=== PATIENT | female | born 1960 | race Caucasian/White ===

== ENCOUNTER → 2017-09-14 12:02 | Outpatient (CLI) | payer MEDICAID, SELFPAY ==
--- NOTE | 2017-09-14 12:09 | XR_ITS ---
XR chest 2V HISTORY: Anasarca ITS.REASON: EDEMA ORDERING PHYSICIAN: Araceli Salazar PATIENT AGE: 57 years COMPARISON: 05/09/2010 FINDINGS: The cardiomediastinal silhouette and pulmonary vascularity are within normal limits. The lungs are clear without infiltrates, suspicious nodules, or pleural effusions. No acute bony abnormalities. IMPRESSION: Negative chest, no acute finding
--- NOTE | 2017-09-14 13:29 | CA_ITS ---
PROCEDURE: 2-D M-mode and color Doppler study INDICATIONS FOR THE TEST: Chest pain COPD Heart Murmur Tobacco Smoking Palpitations Fatigue Syncope EdemaX HypertensionXDiabetes Mellitus Rheumatic Fever SOBXDOEXObesityXHyperlipidemia Family History HDX Additional History PATIENT INFORMATION HEIGHT: 66 WEIGHT:170 GENDER: Female B/P:112/70 2-D/M-MODE INTERPRETATION: 2-D MEASUREMENTS OBSERVED VALUES IN CMS Right Ventricular Dimension (RVDd) 1.0 Interventricular Septum (Thickness)(IVsd) 1.2 Left Ventricular Internal Dimensions(LVIDd) 5.0 Left Ventricular Posterior Wall (Thickness)(LVPWd) 1.0 Aortic Root 3.1 Aortic Cusp Separation 2.0 Left Atrial Dimensions (LAD) 2.8 2D 1. Left atrium is mildly enlarged, left ventricle is normal size, there is mild concentric left ventricular hypertrophy, visually estimated ejection fraction 55% with no obvious regional wall motion abnormality. 2. The right atrium and right ventricle are normal size and contractility. 3. The aortic valve is minimally thickened and fibrosed. 4. The mitral and tricuspid valve leaflets are minimally thickened. 5. The pulmonic valve is poorly visualized. 6. No significant pericardial effusion noted. DOPPLER INTERROGATION: Doppler interrogation of the aortic, mitral and tricuspid valvular presence of mild mitral and tricuspid regurgitation, tricuspid and jet velocity is insufficient for calculation of the right ventricular systolic pressure, grade 1 diastolic dysfunction seen with tissue Doppler evidence of raised left atrial pressure. CONCLUSION: 1. Mildly enlarged left atrium, normal left ventricular size, mild concentric left ventricular hypertrophy, visually estimated ejection fraction 55% with no obvious regional wall motion abnormality, grade 1 diastolic dysfunction seen with tissue Doppler evidence of raised left atrial pressure. 2. Mild mitral and tricuspid regurgitation 3. No significant pericardial effusion noted.
[2017-09-14 14:16] VITALS: PULSE 70; PULSE 74
== END ==
PROVIDERS: Family Provider Nurse Practitioner; PCP Family Medicine; Visit Provider Nurse Practitioner
DX: R60.9 Edema, unspecified (principal)
CPT/HCPCS: 71046; 93306; 94060; 94640

== ENCOUNTER → 2019-01-12 15:52 | Outpatient (CLI) | payer MEDICAID, SELFPAY ==
--- NOTE | 2019-01-12 16:00 | XR_ITS ---
XR foot RT min 3V HISTORY: ITS.REASON: RT FOOT PAIN ORDERING PHYSICIAN: Stacey Suazo APRN PATIENT AGE: 58 years COMPARISON: None FINDINGS: There is mild to moderate generalized osteopenia without acute fracture. There is also generalized mild narrowing of all of the interphalangeal joints. There is no spurring or periarticular erosions. Soft tissues are unremarkable. There is a 2 mm calcaneal spur. There is punctate linear calcification adjacent to the undersurface of the cuboid bone, likely related to calcification of tendon or ligament. Impression: Osteopenia. No acute process. Small calcaneal spur.
--- NOTE | 2019-01-12 16:00 | XR_ITS ---
XR foot LT min 3V HISTORY: ITS.REASON: LT FOOT PAIN ORDERING PHYSICIAN: Stacey Suazo APRN PATIENT AGE: 58 years COMPARISON: None FINDINGS: There is generalized mild to moderate osteopenia without acute fracture. As on the right foot there is nonspecific mild narrowing of all of the interphalangeal joints without spurring or periarticular erosion. The remainder of the joint spaces and alignment are normal. There is no soft tissue abnormality. Impression: No acute process. Osteopenia. Nonspecific mild arthritic change involving interphalangeal joints.
== END ==
PROVIDERS: PCP Nurse Practitioner Family; Visit Provider Nurse Practitioner Family
DX: M79.671 Pain in right foot (principal); M79.672 Pain in left foot
CPT/HCPCS: 73630

== ENCOUNTER → 2019-03-13 10:01 | Outpatient (CLI) | payer MEDICAID, SELFPAY ==
--- NOTE | 2019-03-13 10:07 | XR_ITS ---
PROCEDURE: XR DEXA AXIAL SKELETON CLINICAL HISTORY: OSTEOPENIA COMPARISON: No exams were available for comparison FINDINGS: L1-L4 density is 0.850 grams/centimeter sq with a T-score -2.7. Right femoral neck density is 0.635 grams/centimeters sq with T-score -2.9. Total right hip density is 0.622 grams/centimeters sq with T-score -3.1. IMPRESSION: Osteoporosis with high fracture risk. Treatment advised. Suggest follow-up exam February 2020 Dictated by: Lakhwinder Pizarro MD 03/13/2019 12:05 Signed by: <Electronically signed by Lakhwinder Pizarro MD in [place]> 03/13/2019 12:05
== END ==
PROVIDERS: PCP Family Medicine; Visit Provider Nurse Practitioner Family
DX: M81.0 Age-related osteoporosis without current pathological fracture (principal)
CPT/HCPCS: 77080

== ENCOUNTER → 2019-04-03 09:08 | Outpatient (CLI) | payer MEDICAID, SELFPAY ==
--- NOTE | 2019-04-03 09:11 | US_ITS ---
PROCEDURE: US LIVER CLINICAL INDICATION: ELEVATED ALKALINE Elevated liver enzymes COMPARISON: No exams were available for comparison FINDINGS: There has been a prior cholecystectomy. The liver has an unremarkable appearance. No focal liver lesions, biliary dilatation, or abnormal fluid collections. There is appropriate direction of blood flow within a non dilated portal vein. Common bile duct is normal at 4 mm. The right kidney and pancreas have an unremarkable appearance IMPRESSION: Prior cholecystectomy. Unremarkable hepatic ultrasound. Dictated by: Lakhwinder Pizarro MD 04/03/2019 11:13 Electronically signed by Lakhwinder Pizarro MD in [place] 04/03/2019 11:13
--- NOTE | 2019-04-03 09:39 | MR_ITS ---
PROCEDURE: MR HEAD/BRAIN WO/W CON CLINICAL INDICATION: FACIAL NUMBNESS, CHANGES IN VISION COMPARISON: No exams were available for comparison TECHNIQUE: Routine multiplanar multi echo sequences are performed without and with gadolinium enhancement. FINDINGS: No midline shift, mass effect, intracranial hemorrhage, or hydrocephalus is evident. No evidence of acute infarction. The cerebellopontine angles, cerebellum, and brainstem are unremarkable. There is slight increased T2 signal within the central aspect of the tina. This does not demonstrate restricted diffusion and is not show any enhancement and may represent ischemic gliotic change from microvascular disease. No enhancing lesions are evident. There are a few scattered subcortical and periventricular areas of increased T2 white matter signal intensity which are nonspecific. The pituitary, optic chiasm, corpus callosum, and craniocervical junction have an unremarkable appearance. No mastoid effusion or sinus air-fluid level. IMPRESSION: Scattered periventricular and subcortical T2 white matter hyperintensities as well as mild diffuse increased T2 signal in the tina. These findings may be due to skin kevin gliotic change from microvascular disease. Differential diagnosis would include migraine headache or even demyelinating process. Please correlate with clinical parameters. No evidence of acute infarction enhancing mass or other significant anomaly. Dictated by: Lakhwinder Pizarro MD 04/04/2019 07:13 Electronically signed by Lakhwinder Pizarro MD in [place] 04/04/2019 07:13
== END ==
PROVIDERS: PCP Nurse Practitioner Family; Visit Provider Nurse Practitioner Family
DX: R74.8 Abnormal levels of other serum enzymes (principal); R20.0 Anesthesia of skin; H53.9 Unspecified visual disturbance
CPT/HCPCS: 70553; 76705; A9576

== ENCOUNTER 2020-09-21 16:57 | Emergency (ER) | payer OTHER, SELFPAY ==
[2020-09-21 17:05] VITALS: BP 137/76; PULSE 80; RESP 18; TEMP 36.8; O2SAT 94; BMI 25.8
--- NOTE | 2020-09-21 17:55 | HMH.EDUTC ---
[facility] [place] Clinical Impression: Bronchitis Sinusitis Qualifiers: Sinusitis location: unspecified location Chronicity: unspecified Qualified Code(s): J32.9 - Chronic sinusitis, unspecified Disposition: Home, Self-Care Condition on Discharge: Good Instructions: Sinusitis, Sinus Headache, Acute Bronchitis, DI for Sinusitis, DI for Acute Bronchitis, Methylprednisolone, Azithromycin Additional Instructions: ? Start antibiotic today. Be sure to complete entire prescription even if feeling better ? Monitor temp. Tylenol every 4 hours as needed and / or ibuprofen every 6 hours as needed ( As long as your primary care physician has told you that it ok to take both. For fever/aches/pains ER if no less than 101 despite Tylenol or Motrin ? Humidifier/vaporizer or hot steamy shower ? Inhaler every 4-6 hours as needed like we discussed. If unsure how to use it, ask pharmacist to demonstrate how. Should help open airways and improve cough, wheezing, and shortness of breath ? Mucinex during the day for your cough and cough suppressant only at night. Be sure to drink lots of water. These are available over the counter *Tessalon Perles will not cause drowsiness but use at bedtime to help stop cough so that you may get some rest. *Start steroid today. Helps with inflammation therefore, cough and wheezing. Follow directions on the package. Reviewed side effects. Patient reports taking them before. Follow up IMMEDIATELY for new or worsening of symptoms OR no noticeable improvement over the next 48-72 hours. 911 immediately for any life threatening symptoms such as chest pain or difficulty breathing Prescriptions: methylPREDNISolone [Medrol 4mg tab] 4 mg PO DIRECTED #21 tab Transmission Status: Received by [facility] Benzonatate [Tessalon Perle 100mg Cap*] 100 mg PO TID PRN #30 cap PRN Reason: Cough Transmission Status: Received by [facility] Azithromycin [Z-Poncho 250mg Tab] 250 mg PO DIRECTED #6 tab Transmission Status: Received by [facility] Referrals: Stacey Suazo APRN [Primary Care Provider] - As needed Forms: Work/School Release Time of Disposition: 18:05 Medical Decision Making - Zaheer Inquiry Pt receiving controlled substance: No Zaheer was queried for this patient: No Vital Signs: 09/21/20 17:05 09/21/20 18:10 Temperature 98.2 F 98.2 F Temperature Source Oral Pulse Rate 80 Pulse Rate [Right Brachial] 80 Respiratory Rate 18 18 Blood Pressure 137/76 Blood Pressure [Right Arm] 137/76 Blood Pressure Mean [Right Arm] 96 Blood Pressure Source [Right Arm] Automatic Cuff Blood Pressure Position [Right Arm] Sitting 02 Sat by Pulse Oximetry 94 L Oxygen Delivery Method Room Air Medical Decision Narrative: Patient states that she has taken azithromycin and steriods before without reaction or complications [facility] [place] - General Stated complaint: cough,runny nose Time Seen by Provider: 09/21/20 17:55 Mode of Arrival: Ambulatory Source of Information: Patient Limitations: No Limitations Description of Symptoms (Recalled from Triage Doc. by RN): PATIENT C/O HACKING COUGH, RUNNY NOSE, AND SINUS DRAINAGE X 3 DAYS HEENT Symptoms (Recalled from RN notes): Yes Resp Symptoms (Recalled from RN notes): Yes Skin Symptoms (Recalled from RN notes): No MS Symptoms (Recalled from RN notes): No Functional Status (Recalled from RN notes): WNL - History of Present Illness Provider Complaint: Patient states that she has been having sinus pressure for over a week and for the last couple of days she has been having sinus pressure and drainage along with cough and feels like it is trying to move into her chest area States that every year she gets sinusitis and bronchitis and feels like that is what she is doing now - Related Data Home Medications Medication Instructions Recorded Confirmed Diclofenac Sodium [Diclofenac 75mg 75 mg PO BID 07/17/19 07/17/19 Tab] Fluoxetine HCl [Prozac]
[2020-09-21 18:10] VITALS: BP 137/76; PULSE 80; RESP 18; TEMP 36.8; O2SAT 94
== END 2020-09-21 18:15 | disposition home or self-care (01) ==
PROVIDERS: Emergency Provider Nurse Practitioner; PCP Nurse Practitioner Family
DX: J20.9 Acute bronchitis, unspecified (principal); J32.9 Chronic sinusitis, unspecified; I10 Essential (primary) hypertension
CPT/HCPCS: 99202; G0463

== ENCOUNTER 2020-11-22 15:30 | Emergency (ER) | payer OTHER, SELFPAY ==
[2020-11-22 16:00] VITALS: BP 131/86; PULSE 64; RESP 17; TEMP 36.9; O2SAT 97; BMI 26.1
--- NOTE | 2020-11-22 16:28 | HMH.EDUTC ---
[facility] [place] Disposition Clinical Impression: Strep pharyngitis Disposition: Home, Self-Care Condition on Discharge: Good Instructions: DI for Strep Throat Prescriptions: Amoxicillin [Amoxicillin 875MG Tab] 875 mg PO Q12H #20 tab Transmission Status: Pending to [facility] Referrals: Stacey Suazo APRN [Primary Care Provider] - Time of Disposition: 16:55 Medical Decision Making - Zaheer Inquiry Pt receiving controlled substance: No Vital Signs: 11/22/20 16:00 Temperature 98.4 F Temperature Source Oral Pulse Rate [Right Brachial] 64 Respiratory Rate 17 Blood Pressure [Right Arm] 131/86 Blood Pressure Mean [Right Arm] 101 Blood Pressure Source [Right Arm] Automatic Cuff Blood Pressure Position [Right Arm] Sitting 02 Sat by Pulse Oximetry 97 Oxygen Delivery Method Room Air - Lab Data Lab results reviewed: Yes: I reviewed the patient's lab results. Lab Results 11/22/20 16:07: Influenza Type A Ag Negative, Influenza Type B Ag Negative Orders (Tests/Meds): ORDERS Category Date Time Status Covid-19 Nasal PCR ([facility]) Routine Lab 11/22/20 16:15 Received [facility] [place] HPI - General Stated complaint: sick at stomach, body aches Time Seen by Provider: 11/22/20 16:28 Mode of Arrival: Ambulatory Source of Information: Patient Limitations: No Limitations Description of Symptoms (Recalled from Triage Doc. by RN): PATIENT C/O NAUSEA, WEAKNESS, AND BODY ACHES SINCE THIS MORNING HEENT Symptoms (Recalled from RN notes): No Resp Symptoms (Recalled from RN notes): No Skin Symptoms (Recalled from RN notes): No MS Symptoms (Recalled from RN notes): No Functional Status (Recalled from RN notes): WNL - History of Present Illness Provider Complaint: Patient was treated for bronchitis last week. She completed EES and Prednisone. Today she is achy, tired, and nauseous. No fever. Denies ear pain or sore throat. No vomiting or diarrhea. Onset (ago): day(s) (1) Location: abdomen Relieving factors: none Exacerbating factors: none Associated symptoms: denies other symptoms Treatments prior to arrival: none - Related Data Home Medications Medication Instructions Recorded Confirmed Fluoxetine HCl [Prozac] 40 mg PO DAILY 07/17/19 11/22/20 Gabapentin 600 mg PO TID 07/17/19 11/22/20 estradioL [Estradiol] 1 tab PO DAILY 07/17/19 11/22/20 hydroCHLOROthiazide [HCTZ 12.5mg 12.5 mg PO DAILY 11/22/20 11/22/20 cap] Previous Rx's Medication Instructions Recorded Amoxicillin [Amoxicillin 875MG 875 mg PO Q12H #20 tab 11/22/20 Tab] Allergies Allergy/AdvReac Type Severity Reaction Status Date / Time thiopental Allergy Severe STOP Verified 09/21/20 17:28 BREATHING morphine Allergy Unknown NA-NAUSEA/V Verified 09/21/20 17:28 OMITING - Worker's Comp Is this a Worker's Comp case?: No [facility] History - Hepatitis A Screen Drug use history?: No High risk sexual behaviors?: No History of sexually transmitted infection?: No Currently employed?: No Childcare worker?: No Do you have indoor plumbing?: Yes Do you have electricity?: Yes Attestation statement:: This patient has been screened for Hepatitis A risk factors. I have reviewed the patient's past medical history: Yes Medical History: Reports:: Hypertension Laterality Cases: Right: Arthroscopy Knee, Bilateral: Carpal Tunnel Release, Tonsillectomy Other Surgeries: Yes: Cholecystectomy, , Tubal Ligation - Social History Smoking Status: Never smoker Alcohol Intake: never Occupational Status: other Family Hx:: Coronary Artery Disease ROS Obtained: Yes All systems reviewed & no additional complaints - Constitutional Constitutional: Reports body ache, Reports fatigue, Denies fever(s), Reports malaise - Gastrointestinal Gastrointestingal: Reports: nausea Physical Exam - General General appearance: alert, in no apparent distress - Head Head exam: normocephalic - Eye Eye exam: Present: PERRL - ENT ENT
[2020-11-22 16:29] LABS: UTC Influenza A Antigen Negative (Negative); UTC Influenza B Antigen Negative (Negative)
[2020-11-22 17:00] VITALS: BP 131/86; PULSE 64; RESP 17; TEMP 36.9; O2SAT 97
[2020-11-22 17:02] LABS: UTC Strep Screen (Rapid) Positive (Negative)
== END 2020-11-22 17:02 | disposition home or self-care (01) ==
PROVIDERS: Emergency Provider Physician Assistant; PCP Nurse Practitioner Family
DX: J02.0 Streptococcal pharyngitis (principal); I10 Essential (primary) hypertension
CPT/HCPCS: 87804; 87880; 99202; G0463; U0003

== ENCOUNTER → 2020-11-28 14:25 | Outpatient (CLI) | payer OTHER, SELFPAY ==
--- NOTE | 2020-11-28 14:28 | XR_ITS ---
PROCEDURE: XR CHEST 2V CLINICAL HISTORY: SOB COMPARISON: DX CXR2V XR chest 2V from 09/14/2017 FINDINGS: The cardiomediastinal silhouette and pulmonary vascularity are within normal limits. The lungs are clear without infiltrates, suspicious nodules, or pleural effusions. Minor degenerative changes of the thoracic spine. IMPRESSION: No acute findings. Dictated by: Tracie Yen 11/28/2020 15:13 Tracie Yen in [place] 11/28/2020 15:13
== END ==
PROVIDERS: PCP Nurse Practitioner Family; Visit Provider Nurse Practitioner Family
DX: R06.02 Shortness of breath (principal)
CPT/HCPCS: 71046

== ENCOUNTER → 2021-08-15 11:50 | Outpatient (CLI) | payer OTHER, SELFPAY ==
[2021-08-16 15:34] LABS: Covid-19 Nasal PCR Sendout Lex POSITIVE
== END ==
PROVIDERS: Visit Provider Nurse Practitioner
DX: U07.1 COVID-19 (principal)
CPT/HCPCS: C9803; U0004; U0005

== ENCOUNTER → 2021-11-11 13:42 | Outpatient (CLI) | payer OTHER, SELFPAY ==
--- NOTE | 2021-11-11 13:49 | MM_ITS ---
PROCEDURE INFORMATION: Exam: Bilateral Diagnostic Breast Tomosynthesis Exam date and time: 11/11/2021 1:53 PM Age: 61 years old Clinical indication: Concern for right breast lump. No family history of breast cancer. This is her 1st mammogram. TECHNIQUE: Imaging protocol: Bilateral Diagnostic tomosynthesis and 2D mammography including computer-aided detection (CAD) when performed. Unilateral or bilateral exam. Triangular marker placed at area of palpable concern in the right upper outer quadrant. Spot compression and in the right MLO view. COMPARISON: No relevant prior studies available. FINDINGS: MAMMOGRAPHY: Breast composition: There are scattered areas of fibroglandular density. Mass: None. Architectural distortion: None. Calcifications: No suspicious calcifications. Asymmetric density: None. Skin thickening: None. Axillary adenopathy: None. Minimal artifact from powder or deodorant high in the right axilla. Other: No focal findings related to area of palpable concern in the right upper outer quadrant, middle to posterior 3rd. IMPRESSION: No mammographic findings at the area of palpable concern on the right. Patient to be recalled for right breast ultrasound for further evaluation of the palpable concern. Further evaluation of a palpable abnormality should be based on clinical grounds regardless of radiographic findings or lack thereof. No mammographic evidence of malignancy. ASSESSMENT: BI-RADS Category 0: Incomplete- Need Additional Imaging Evaluation and/or Prior Mammograms for Comparison
--- NOTE | 2021-11-11 13:51 | XR_ITS ---
FINAL REPORT CLINICAL HISTORY: LUMBAGO W/SCIATICA FINDINGS: Five views were obtained. There is no acute fracture. There is no malalignment. The disc spaces are maintained. IMPRESSION: No acute process. Reviewed, Interpreted and Dictated by Jerod Hampton MD Transcribed by Pablito Khan Authenticated by Jerod Hampton MD on 11/11/2021 03:16:23 PM [facility]
--- NOTE | 2021-11-11 13:51 | XR_ITS ---
FINAL REPORT CLINICAL HISTORY: RT HIP PAIN FINDINGS: 2 views of the right hip with an AP pelvis were obtained. There is no acute fracture or dislocation. There is minimal osteophyte formation along the inferior right femoral head. The joint spaces are intact. There are no soft tissue abnormalities. IMPRESSION: No acute process. Reviewed, Interpreted and Dictated by Jerod Hampton MD Transcribed by Pablito Khan Authenticated by Jerod Hampton MD on 11/11/2021 03:16:[address] [facility]
== END ==
PROVIDERS: PCP Nurse Practitioner Family; Visit Provider Nurse Practitioner Family
DX: N63.13 Unspecified lump in the right breast, lower outer quadrant (principal); M54.40 Lumbago with sciatica, unspecified side; M25.551 Pain in right hip
CPT/HCPCS: 72110; 73502; 77062; 77066; G0279

== ENCOUNTER → 2021-11-21 09:12 | Outpatient (CLI) | payer OTHER, SELFPAY ==
--- NOTE | 2021-11-21 09:19 | XR_ITS ---
FINAL REPORT TECHNIQUE: Bone densitometry calculations of the lumbar spine and left hip were obtained. CLINICAL HISTORY: . post menopausal screening COMPARISON: March 13, 2019 FINDINGS: DEXA BONE DENSITY AXIAL SKELETON Using L1-4, the bone mineral density of the spine is 0.756 g/cm2, corresponding to T-score of -2.6. Was previously 0.850 g/cm2 with a T-score of -2.7. Using the left hip, the bone mineral density of the femoral neck is 0.632 g/cm2, corresponding to a T-score of -2.5. Was previously 0.726 g/cm2 with a T-score of -2.2. Using the right hip, the bone mineral density of the femoral neck is 0.566 g/cm2, corresponding to a T-score of -2.6. Was previously 0.622 g/cm2 with a T-score -3.1 NOTE: T-score: Standard deviation compared with peak bone mass of young adult mean. *Following the recommendations of the International Society of Bone Densitometry, classification of hip BMD is based on the lower of two T-scores; total hip or femoral neck. IMPRESSION: Osteoporosis: Lowest T-score is at or below -2.5. This patient's T-score meets the World Health Organization criteria for osteoporosis. Reviewed, Interpreted and Dictated by Jerod Hampton MD Transcribed by Iman Borges Authenticated by Jerod Hampton MD on 11/21/2021 10:42:28 AM [facility]
--- NOTE | 2021-11-21 09:23 | US_ITS ---
PROCEDURE INFORMATION: Exam: US Right Breast, Complete Exam date and time: 11/21/2021 10:19 AM Age: 61 years old Clinical indication: Right breast pain. Palpable abnormality in the right breast TECHNIQUE: Imaging protocol: Complete ultrasound of all four quadrants of the Right breast and the retroareolar regions, including ultrasound of the axilla when performed. COMPARISON: MG MM DIG MAMM BI DX W/CAD 11/11/2021 1:53 PM FINDINGS: Breast: Sonographic images of the right breast including the retroareolar region, all 4 quadrants and the axilla do not demonstrate any solid masses. Minimal subcentimeter cystic del valle is noted in the 2 o'clock axis as well as in the 9 o'clock axis 8 cm from the nipple where the patient reports a palpable abnormality. No architectural distortion or acoustical shadowing. No skin thickening or axillary adenopathy. Mammogram performed 11/11/2021 did not demonstrate any suspicious findings in the right lateral breast where the patient reports a palpable abnormality. IMPRESSION: Palpable abnormality in the right breast corresponds both mammographically and sonographically to normal fibroglandular structures and minimal subcentimeter cystic change. There is no mammographic evidence of malignancy. Further evaluation of a palpable abnormality should be based on clinical grounds regardless of radiographic findings or lack thereof. Annual mammographic screening is recommended unless otherwise clinically indicated. ASSESSMENT: BI-RADS Category 2: Benign
== END ==
PROVIDERS: PCP Nurse Practitioner Family; Visit Provider Nurse Practitioner Family
DX: M81.0 Age-related osteoporosis without current pathological fracture (principal); R92.8 Other abnormal and inconclusive findings on diagnostic imaging of breast; N64.4 Mastodynia; N63.10 Unspecified lump in the right breast, unspecified quadrant
CPT/HCPCS: 76641; 77080

== ENCOUNTER 2022-02-03 11:09 | Outpatient (CLI) | payer OTHER, SELFPAY ==
[2022-02-03 11:35] VITALS: BP 148/81; PULSE 64; RESP 18; TEMP 36.4; O2SAT 98
== END 2022-02-03 12:06 | disposition home or self-care (01) ==
LOC: INF 11:10
PROVIDERS: PCP Nurse Practitioner Family; Visit Provider Nurse Practitioner Family
DX: M81.0 Age-related osteoporosis without current pathological fracture (principal)
CPT/HCPCS: 96372; J0897

== ENCOUNTER → 2022-07-28 14:50 | Outpatient (CLI) | payer OTHER, SELFPAY ==
--- NOTE | 2022-07-28 14:54 | XR_ITS ---
FINAL REPORT CLINICAL HISTORY: COUGH,SOB COMPARISON: November 28, 2020 FINDINGS: Two views of the chest were obtained. The heart size and pulmonary vascularity are within normal limits. The mediastinum is normal. No acute pulmonary abnormality is identified. There is no pneumothorax. The bony thorax is intact. IMPRESSION: No active cardiopulmonary disease. Reviewed, Interpreted and Dictated by Johnie Lockett III, MD Transcribed by Iman Borges Authenticated and [facility]
== END ==
PROVIDERS: PCP Nurse Practitioner Family; Visit Provider Nurse Practitioner Family
DX: R06.02 Shortness of breath (principal); R05.1 Acute cough
CPT/HCPCS: 71046

== ENCOUNTER 2022-08-11 10:57 | Outpatient (CLI) | payer OTHER, SELFPAY ==
[2022-08-11 11:33] VITALS: BP 146/74; PULSE 58; RESP 18; TEMP 36.4; O2SAT 98
== END 2022-08-11 11:50 | disposition home or self-care (01) ==
LOC: INF 10:58
PROVIDERS: PCP Nurse Practitioner Family; Visit Provider Nurse Practitioner Family
DX: M81.0 Age-related osteoporosis without current pathological fracture (principal)
CPT/HCPCS: 96372; J0897

== ENCOUNTER 2024-01-30 16:17 | Emergency (ER) | payer SELFPAY ==
[2024-01-30 16:19] VITALS: BP 156/86; PULSE 84; RESP 18; TEMP 36.9; O2SAT 95; BMI 28.7
--- NOTE | 2024-01-30 16:19 | ED_ITS ---
<Statement entered by Toño Zimmer MD - 01/30/24 18:24> I was consulted by the SADIE, and we discussed the complexity of the problems being addressed. I approved the treatment and management plan for this patient's care in the emergency department, thus performing a substantive portion of the medical decision making. Toño Zimmer MD Discharge Plan Disposition Patient Disposition: Home, Self-Care Condition: Good Prescriptions Prescriptions: New [id number]-nhwilmldc-IX [Bromfed DM] 2-30-10 mg/5 mL syrup 5 ml PO Q4H PRN (Reason: allergy symptoms) Qty: 118 0RF prednisone 50 mg tablet 50 mg PO DAILY 5 Days Qty: 5 0RF azithromycin 500 mg tablet See Rx Instructions .ROUTE .COMPLEX Qty: 9 0RF Rx Instructions: For 250 mg dose pack: take 500 mg today (day 1), then 250 mg for 4 days (days 2-5) No Action Trelegy Ellipta 200-62.5-25 mcg blister with device 1 inh inhalation DAILY Qty: 60 2RF levocetirizine 5 mg tablet 5 mg PO DAILY Qty: 30 2RF albuterol sulfate 90 mcg/actuation HFA aerosol inhaler 2 puff IH Q4-6H PRN (Reason: Shortness Of Breath) Qty: 8.5 2RF calcium carbonate-vitamin D3 600 mg-10 mcg (400 unit) capsule 1 cap PO DAILY 30 Days Qty: 30 2RF estradiol 1 mg tablet 1 mg PO DAILY 30 Days Qty: 30 2RF fluoxetine 20 mg capsule 60 mg PO DAILY 30 Days Qty: 90 2RF hydrochlorothiazide 12.5 mg capsule 12.5 mg PO DAILY 30 Days Qty: 30 2RF gabapentin 300 mg capsule See Rx Instructions .ROUTE .COMPLEX Qty: 90 0RF Dose Instruction: TAKE 1 CAPSULE BY MOUTH THREE TIMES A DAY NEEDED FOR NEUROPATHY MAY CAUSE DROWSINESS Rx Instructions: TAKE 1 CAPSULE BY MOUTH THREE TIMES A DAY NEEDED FOR NEUROPATHY MAY CAUSE DROWSINESS Referrals Follow up/Referrals: Stacey Suazo APRN [Primary Care Provider] - See instructions Activity Restrictions/Add. Instructions Additional Instructions/Restrictions: Follow-up with your PCP for any worsening signs or symptoms or return to the ER as needed. Clinical Impressions Clinical Impression: Acute exacerbation of chronic obstructive pulmonary disease Discharge ED Provider: Toño Zimmer General Adult HPI General Chief complaint: Upper Respiratory Infection Stated complaint: sore throat,cough,body aches,vomiting,fever Time Seen by Provider: 01/30/24 16:19 History of Present Illness HPI narrative: Patient presents for evaluation of cough and shortness of breath. Patient reports since Wednesday she has had cough shortness of breath malaise body aches nausea vomiting diarrhea particular when coughing. She denies chest pain fever chills hemoptysis hematochezia melena. Patient does have COPD but is a never smoker but was exposed to her parents smoking. Related Data Previous Rx's Medication Instructions Recorded albuterol sulfate 90 mcg/actuation 2 puff inhalation Q4-6H PRN 11/05/23 aerosol inhaler Shortness Of Breath #8.5 grams calcium carbonate 600 mg-vitamin 1 cap PO DAILY Supplement 30 days 11/05/23 D3 10 mcg (400 unit) capsule #30 caps estradiol 1 mg tablet 1 mg PO DAILY Supplement 30 days 11/05/23 #30 tabs fluoxetine 20 mg capsule 60 mg (3 x 20 mg) PO DAILY Anxiety 11/05/23 30 days #90 caps fluticasone fur. 200 mcg-umeclid 1 inh inhalation DAILY #60 ea 11/05/23 62.5 mcg-vilant 25 mcg inhalat.powder (Trelegy Ellipta) hydrochlorothiazide 12.5 mg capsule 12.5 mg PO DAILY Hypertension 30 11/05/23 days #30 caps levocetirizine 5 mg tablet 5 mg PO DAILY #30 tabs 11/05/23 gabapentin 300 mg capsule See Rx Instructions .Route 01/04/24 .COMPLEX #90 caps azithromycin 500 mg tablet See Rx Instructions PO .COMPLEX #9 01/30/24 tabs yilmguryjrhywnh-tqpzldypngbbbvh-NO 5 ml PO Q4H PRN allergy symptoms 01/30/24 2 mg-30 mg-10 mg/5 mL oral syrup #118 mL (Bromfed DM) prednisone 50 mg tablet 50 mg PO DAILY 5 days #5 tabs 01/30/24 Allergies Allergy/AdvReac Type Severity Reaction Status Date / Time morphine Allergy Severe NA-NAUSEA/V Verified 02/03/22 11:31 OMITING thiopental Allergy Severe STOP Verified 02/03/22 11:31 BREATHING PFSH [facility] Disclaimer: The information contained in this section may have been updated after the patient was seen, as this information can be updated by other users. Medical History (Updated 01/30/24 @ 17:45 by MARC Canales) HTN (hypertension) Anxiety and depression Osteoporosis GERD (gastroesophageal reflux disease) HHD (hypertensive heart disease) Obstructive airway disease Dyspnea Surgical History History of bilateral tubal ligation History of History of cholecystectomy History of tonsillectomy History of arthroscopy of right knee Family History Other Coronary artery disease Social History Smoking Status: Never smoker alcohol intake: never substance use type: marijuana current occupational status: employed Travel in the last 8 weeks: Inside the [place] household members: family housing: house ROS Obtained: Yes Systems reviewed as appropriate & no additional complaints except as documented Physical Exam General General appearance: alert and in no apparent distress Head Head exam: atraumatic and normal inspection Eye Eye exam: Present normal appearance and EOMI ENT ENT exam: Present normal exam, normal oropharynx and mucous membranes moist Respiratory Respiratory exam: Present accessory muscle use and other (Diminished air entry globally but no adventitious sounds); Absent wheezes or stridor Cardiovascular Cardiovascular exam: Present regular rate and normal rhythm Neurological Exam Neurological exam: Present alert and oriented X3 Medical Decision Making Medical Records Medical records reviewed: Yes I reviewed the patient's medical records. Zaheer Inquiry Pt receiving controlled substance: No Vital Signs: 01/30/24 16:19 Temperature 98.5 F Temperature Source Oral Pulse Rate [Right Brachial] 84 Respiratory Rate 18 Blood Pressure [Right Arm] 156/86 H Blood Pressure Mean [Right Arm] 109 Blood Pressure Source [Right Arm] Automatic Cuff Blood Pressure Position [Right Arm] Sitting 02 Sat by Pulse Oximetry 95 Oxygen Delivery Method Room Air Lab Data Lab results reviewed: Yes I reviewed the patient's lab results. Lab Results 01/30/24 16:26: VBG pH 7.38, VBG pCO2 46.8, VBG pO2 60.4 H, VBG HCO3 26.8, VBG Total CO2 28.2 H, VBG O2 Saturation 91.2 H, VBG Base Excess 1.5, VBG Lactic Acid 2.0 01/30/24 16:36: WBC 8.8, RBC 4.21, Hgb 13.7, Hct 40.1, MCV 95.3, MCH 32.5 H, MCHC 34.1, RDW 14.2, Plt Count 240, MPV 8.1, Neut % (Auto) 65.5, Lymph % (Auto) 24.9, [place] % (Auto) 5.1, Eos % (Auto) 3.4, Baso % (Auto) 1.1, Neut # (Auto) 5.8, Lymph # (Auto) 2.2, [place] # (Auto) 0.5, Eos # (Auto) 0.3, Baso # (Auto) 0.1, Sodium 140, Potassium 3.8, Chloride 109 H, Carbon Dioxide 25, Anion Gap 9.8, BUN 6 L, Creatinine 1.10 H, Estimated Creat Clear 68, Estimated GFR 50 L, Est GFR ( Amer) 61, Glucose 94, Calcium 9.8, Magnesium 1.8, Total Bilirubin 0.3, AST 32, ALT 29, Alkaline Phosphatase 106, Total Protein 7.2, Albumin 4.2, Globulin 3.0, Albumin/Globulin Ratio 1.4 01/30/24 16:36 01/30/24 16:36 Orders (Tests/Meds): ED MEDICATIONS Discontinued Medications Generic Name Dose Route Start Last Admin Trade Name Freq PRN Reason Stop Dose Admin Acetaminophen 1,000 mg 01/30/24 16:25 01/30/24 17:16 Acetaminophen 1,000mg/100ml Vial IV 01/30/24 16:26 1,000 mg ONCE ONE Administration Albuterol/Ipratropium 3 ml 01/30/24 16:25 01/30/24 16:51 Ipratropium/Albuterol 3 Ml Neb IH 01/30/24 16:26 3 ml ONCE ONE Administration Dexamethasone Sodium Phosphate 10 mg 01/30/24 16:25 01/30/24 17:17 Dexamethasone 4mg/Ml 5ml Mdv IV 01/30/24 16:26 10 mg ONCE ONE Administration Lactated Ringer's 1,000 mls @ 999 mls/hr 01/30/24 16:25 01/30/24 17:17 Lactated Ringer's 1000 Ml Bag IV 01/30/24 17:25 999 mls/hr .Q1H1M ONE Administration Magnesium Sulfate 2 gm in 50 mls @ 50 mls/hr 01/30/24 16:27 01/30/24 17:17 Magnesium Sulfate 2gm/50ml Premix IV 01/30/24 17:26 50 mls/hr ONCE ONE Administration Ketorolac Tromethamine 15 mg 01/30/24 16:25 01/30/24 17:17 Ketorolac 30mg/Ml Vial IV 01/30/24 16:26 15 mg ONCE ONE Administration Ondansetron HCl 4 mg 01/30/24 16:32 01/30/24 17:17 Ondansetron 4mg/2ml Vial IV 01/30/24 16:33 4 mg ONCE ONE Administration ORDERS Category Date Time Status Chest XR -- portable [XR chest portable] Stat Exams 01/30/24 16:25 Completed CBC w/Auto Diff [Complete Blood Count Auto Diff] Stat Lab 01/30/24 16:36 Completed CMP [Comprehensive Metabolic Panel] Stat Lab 01/30/24 16:36 Completed Full Resp Panel w/COVID ([facility]) Routine Lab 01/30/24 16:36 Received Magnesium Stat Lab 01/30/24 16:36 Completed VBG [Venous Blood Gas] Stat RT 01/30/24 16:26 Completed Medical Decision Narrative: In summary patient is a 3-year-old female who presents to the emergency department for evaluation of cough shortness of breath nausea vomiting diarrhea. Patient is hypertensive but normal heart rate and otherwise stable vital signs satting 94% on room air upon arrival, afebrile. Physical exam is remarkable for persistent pervasive cough dry hacking in nature. Breath sounds have diminished global air entry but no adventitious sounds and breath sounds are to bases.. Differential diagnosis includes COPD exacerbation versus viral bacterial respiratory tract infection versus bronchitis etc. Initial workup will be conducted with hematologic labs, full respiratory panel, chest x-ray. Initial interventions include Toradol Tylenol fluid bolus Decadron DuoNeb Zofran. Initial workup reviewed by me shows her white count is normal with no shift. My informal interpretation of her plain film chest x-ray shows no acute processes prior to radiology read. The remainder of her workup is nonactionable and her respiratory panel is pending which the patient will access in the portal. Upon repeat evaluation patient has had significant improvement in her constitutional symptoms after initial intervention. Given this appropriate for discharge with a prescription for Bromfed, prednisone, and azithromycin for atypical coverage Critical Care Critical Care Time Critical Care Time: No
--- NOTE | 2024-01-30 16:25 | XR_ITS ---
PROCEDURE INFORMATION: Exam: XR Chest Exam date and time: 01/30/2024 4:31 PM Age: 63 years old Clinical indication: Cough and shortness of breath; Additional info: Cough shortness of breath TECHNIQUE: Imaging protocol: Radiologic exam of the chest. Views: 1 view. COMPARISON: CR XR CHEST 2V 07/28/2022 3:15 PM FINDINGS: Lungs: Unremarkable. No consolidation. Pleural spaces: Unremarkable. No pleural effusion. No pneumothorax. Heart/Mediastinum: Unremarkable. No cardiomegaly. Bones/joints: Unremarkable. IMPRESSION: No acute findings.
[2024-01-30 16:39] LABS: Adenovirus,PCR Not Detected (NotDetected); Bordetella Pertussis Not Detected (NotDetected); Chlamydophila Pneumoniae, PCR Not Detected (NotDetected); Coronavirus 19, PCR Not Detected (NotDetected); Coronavirus 229E Not Detected (NotDetected); Coronavirus NL63 Not Detected (NotDetected); Coronavirus OC43 Not Detected (NotDetected); Coronovirus HKU1,PCR Not Detected (NotDetected); Human Metapneumovirus Not Detected (NotDetected); Influenza A, PCR Not Detected (NotDetected); Influenza AH1, 2009 Not Detected (NotDetected); Influenza AH1, PCR Not Detected (NotDetected); Influenza AH3,PCR Not Detected (NotDetected); Influenza B, PCR Not Detected (NotDetected); Mycoplasma Pneumoniae, PCR Not Detected (NotDetected); Parainfluenza 1, PCR Not Detected (NotDetected); Parainfluenza 2, PCR Not Detected (NotDetected); Parainfluenza 3, PCR Not Detected (NotDetected); Parainfluenza 4, PCR Not Detected (NotDetected); Respiratory Syncytial Virus Not Detected (NotDetected); Rhinovirus/Enterovirus Not Detected (NotDetected)
[2024-01-30 16:46] LABS: Basophils # 0.1 K/mm3 (0-0.2); Basophils % 1.1 % (0.1-2.0); Eosinophils # 0.3 K/mm3 (0.0-0.4); Eosinophils % 3.4 % (0.1-12.0); Hematocrit 40.1 % (37.0-47.0); Hemoglobin 13.7 g/dL (12.2-16.2); Lymphocytes # 2.2 K/mm3 (0.7-4.5); Lymphocytes % 24.9 % (10-50); Mean Corpuscular HGB Conc 34.1 g/dL (31.8-35.4); Mean Corpuscular Hemoglobin 32.5 pg (27.0-31.2); Mean Corpuscular Volume 95.3 fl (81-99); Mean Platelet Volume 8.1 fl (7.4-10.4); Monocytes # 0.5 K/mm3 (0.1-1.0); Monocytes % 5.1 % (1.7-9.3); Neutrophils # 5.8 K/mm3 (1.8-7.8); Neutrophils % 65.5 % (37.0-80.0); Platelet Count 240 K/mm3 (142-424); Red Blood Count 4.21 M/mm3 (4.20-5.40); Red Cell Distribution Width 14.2 % (11.5-17.5); White Blood Count 8.8 K/mm3 (4.8-10.8)
[2024-01-30 16:47] LABS: Chloride 109 mmol/L (98-107); Potassium 3.8 mmoL/L (3.5-5.1); Sodium 140 mmol/L (136-145)
[2024-01-30 16:49] LABS: Blood Urea Nitrogen 6 mg/dl (7-17); Creatinine Clearance Estimated 68 mL/min (50-200); Estimated Glomerular Filt Rate 50 ml/min (>60)
[2024-01-30 16:50] LABS: Alanine Aminotransferase 29 U/L (12-78); Albumin Level 4.2 g/dl (3.5-5.0); Albumin/Globulin Ratio 1.4 (1.1-1.8); Alkaline Phosphatase 106 U/L (38-126); Anion Gap 9.8 mEq/L (5-15); Aspartate Amino Transferase 32 U/L (14-36); Bilirubin,Total 0.3 mg/dl (0.2-1.3); Calcium 9.8 mg/dl (8.4-10.2); Carbon Dioxide 25 mmol/L (22.0-30.0); GFR (African American) 61 ML/MIN (>60); Glucose 94 mg/dl (74-100); Magnesium 1.8 mg/dl (1.6-2.3); Total Protein,Serum 7.2 g/dl (6.3-8.2)
[2024-01-30] MEDS: IPRATROPIUM/ALBUTEROL 3 ML NEB IH (16:51)
[2024-01-30 16:53] LABS: VBG Base Excess 1.5 mmol/L (-2.4-2.3); VBG HCO3 26.8 mmol/L (23-30); VBG Oxygen Saturation 91.2 % (50-70); VBG PCO2 46.8 mmol/L (35-51); VBG PH 7.38 mmol/L (7.31-7.41); VBG PO2 60.4 mmol/L (28-40); VBG Total CO2 28.2 mmol/L (23-27)
[2024-01-30] MEDS: ACETAMINOPHEN 1,000MG/100ML VIAL 1000 MG IV (17:16)
[2024-01-30] MEDS: LACTATED RINGERS 1000ML 1,000 ML 999 ML IV (17:17)
[2024-01-30] MEDS: KETOROLAC 30MG/ML VIAL 15 MG IV (17:17)
[2024-01-30] MEDS: MAGNESIUM SULFATE IN WATER 2 GM/50 ML PIGGYBACK IV (17:17)
[2024-01-30] MEDS: DEXAMETHASONE 4MG/ML 5ML MDV 10 MG IV (17:17)
[2024-01-30] MEDS: ONDANSETRON 4MG/2ML VIAL 4 MG IV (17:17)
[2024-01-30 17:48] VITALS: BP 134/62; PULSE 71; RESP 20; TEMP 36.9; O2SAT 96
== END 2024-01-30 18:03 | disposition home or self-care (01) ==
PROVIDERS: Physician Assistant; Emergency Provider Emergency Medicine; PCP Nurse Practitioner Family
DX: J44.1 Chronic obstructive pulmonary disease with (acute) exacerbation (principal); R06.02 Shortness of breath; R05.9 Cough, unspecified; R11.2 Nausea with vomiting, unspecified; R19.7 Diarrhea, unspecified; K21.9 Gastro-esophageal reflux disease without esophagitis; I10 Essential (primary) hypertension; Z77.22 Contact with and (suspected) exposure to environmental tobacco smoke (acute) (chronic)
CPT/HCPCS: 71045; 80053; 82803; 83735; 85025; 87581; 87632; 87635; 87798; 96365; 96375; 99284; J0131; J1885; J2405; J3475; J7120; J7620